=== PATIENT | male | born 1930 | race Caucasian/White ===

== ENCOUNTER 2017-10-24 14:09 | Outpatient (CLI) | payer MEDICARE, BC ==
--- NOTE | 2017-10-24 15:21 | XRAY Report ---
Procedure Date: 10/24/2017 Accession Number: [id number] / [id number] Procedure: XR - Chest 2 View X-Ray CPT Code: 79432 FULL RESULT: EXAM: Chest 2 View X-Ray DATE: 10/24/2017 2:48 PM CLINICAL HISTORY: INTERCOSTAL PAIN COMPARISON: 10/07/2014 and 01/30/2013. TECHNIQUE: 2 views. FINDINGS: Lungs/Pleura: No focal opacities evident. No pneumothorax or pleural effusion. Normal volumes. Mediastinum: Stable calcified left mediastinal nodes. Cardiac silhouette is within normal limits for size. Other: None. IMPRESSION: No acute cardiopulmonary abnormality. Prior granulomatous disease. RADIA
== END 2017-10-24 14:10 | disposition home or self-care (01) ==
LOC: DI 14:09
PROVIDERS: ATTEND Family Medicine
DX: R07.82 Intercostal pain (principal)
CPT/HCPCS: 71046

== ENCOUNTER 2018-07-21 11:26 | Emergency (ER) | payer MEDICARE, BC ==
[2018-07-21 12:05] LABS: BASOPHILS # (AUTO) 0.1 10^3/uL (0.0-0.1); EOSINOPHILS # (AUTO) 0.1 10^3/uL (0.0-0.7); EOSINOPHILS % (AUTO) 0.7 %; HGB - HEMOGLOBIN 14.3 g/dL (14.0-18.0); LYMPHOCYTES # (AUTO) 0.4 10^3/uL (1.5-3.5); MEAN CORPUSCULAR HEMOGLOBIN 31.8 pg (27.0-31.0); MEAN CORPUSCULAR HGB CONC 33.2 g/dL (32.0-36.0); MEAN CORPUSCULAR VOLUME 95.8 fL (80.0-94.0); MEAN PLATELET VOLUME 10.4 fL (7.4-11.4); MONOCYTES # (AUTO) 0.7 10^3/uL (0.0-1.0); MONOCYTES % (AUTO) 7.1 %; NEUTROPHILS # (AUTO) 8.3 10^3/uL (1.5-6.6); NEUTROPHILS % (AUTO) 87.2 %; PLT - PLATELET COUNT 183 10^3/uL (130-450); RED BLOOD COUNT 4.48 10^6/uL (4.70-6.10); WHITE BLOOD COUNT 9.6 x10^3/uL (4.8-10.8)
--- NOTE | 2018-07-21 12:05 | ED Physician Documentation ---
PD HPI CHEST PAIN - Stated complaint Stated Complaint: CHEST PX,WEAK,SORE THROAT - Chief complaint Chief Complaint: Cardiac - History obtained from History obtained from: Patient - History of Present Illness Timing - onset: How many days ago (2-3) Timing - duration: Days (2-3) Timing - details: Abrupt onset (He started feeling weak, achy, coughing, and malaise starting 2-3 days ago. No appetite with poor intake. Feeling worse today. [place] chilled.), Still present Quality: Aching, Pain (with coughing and breathing.) Location: Substernal Radiation: No: Jaw, Back Improved by: Rest Worsened by: Other (coughing) Associated symptoms: Shortness of air, Nausea, General Weakness, Cough. No: Vomiting, Feeling faint / dizzy, Palpitations Similar symptoms before: Diagnosis Recently seen: Clinic Review of Systems Constitutional: reports: Fever, Chills, Myalgias, Fatigue Nose: reports: Congestion. denies: Rhinorrhea / runny nose Throat: denies: Sore throat Cardiac: reports: Chest pain / pressure. denies: Palpitations, Pedal edema Respiratory: reports: Cough. denies: Wheezing GI: reports: Nausea. denies: Abdominal Pain, Vomiting, Diarrhea Neurologic: reports: Generalized weakness. denies: Focal weakness, Numbness, Altered mental status, Headache PD PAST MEDICAL HISTORY - Past Medical History Cardiovascular: Atrial fibrillation Respiratory: None Endocrine/Autoimmune: Type 2 diabetes GI: Diverticulitis : Frequency, Kidney stones HEENT: None Psych: None Musculoskeletal: None Derm: Eczema - Past Surgical History Past Surgical History: Yes Cardiovascular: Coronary stent Derm: Skin cancer surgery - Present Medications Home Medications: Ambulatory Orders Medication Instructions Recorded Confirmed Atorvastatin Calcium [Lipitor] 20 mg PO DAILY 08/03/12 10/07/14 Cholecalciferol (Vitamin D3) 4,000 unit PO DAILY 08/03/12 10/07/14 [Vitamin D] Lisinopril 10 mg PO DAILY 08/03/12 10/07/14 Metformin HCl [Fortamet] 500 mg PO DAILY 08/03/12 10/07/14 [place]-3/Dha/Epa/Fish Oil [Fish Oil] 1,000 mg PO DAILY 08/03/12 10/07/14 Tamsulosin [Flomax] 0.4 mg PO DAILY 08/03/12 10/07/14 Warfarin [Coumadin] 5 mg PO DAILY 08/03/12 10/07/14 Hydrocodone/Acetaminophen [[place] 1 each PO Q6H PRN #20 tablet 10/07/14 5-325 Tablet] Albuterol Sulf [Ventolin Hfa 2 puffs INH Q4HR PRN #1 inhaler 07/21/18 Inhaler] Benzonatate [Tessalon Perle] 100 mg PO TID PRN #30 capsule 07/21/18 Dexamethasone [Decadron] 4 mg PO DAILY #5 tablet 07/21/18 Ondansetron Odt [Zofran] 4 mg TL Q6H PRN #10 tablet 07/21/18 - Allergies Allergies/Adverse Reactions: Allergies Allergy/AdvReac Type Severity Reaction Status Date / Time No Known Drug Allergies Allergy Verified 07/21/18 11:38 - Social History Does the pt smoke?: No Smoking Status: Never smoker Does the pt drink ETOH?: No Does the pt have substance abuse?: No - Immunizations Immunizations are current?: Yes PD ED PE NORMAL - Vitals Vital signs reviewed: Yes - General General: Alert and oriented X 3, No acute distress, Well developed/nourished - HEENT HEENT: Ears normal, Pharynx benign. No: Moist mucous membranes - Neck Neck: Supple, no meningeal sign, No adenopathy - Cardiac Cardiac: No murmur. No: RRR (irregular but rate controlled) - Respiratory Respiratory: Clear bilaterally - Abdomen Abdomen: Soft, Non tender - Derm Derm: Normal color, Warm and dry - Extremities Extremities: No deformity, No tenderness to palpate, Normal ROM s pain, No edema, No calf tenderness / cord - Neuro Neuro: Alert and oriented X 3, No motor deficit, Normal speech Results - Vitals Vitals: Vital Signs - 24 hr 07/21/18 07/21/18 07/21/18 11:32 12:54 14:02 Temperature 36.8 C Heart Rate 70 74 72 Respiratory 19 21 18 Rate Blood Pressure 118/60 124/68 O2 Saturation 100 98 Oxygen O2 Source Room air - EKG (time done) 11:36 Rate: Rate (enter#) (72) Rhythm: Atrial fibrillation [place]: Normal QRS: Normal Ischemia: Normal ST segments. No: ST elevation c/w ischemia, ST depression - Labs Labs: Laboratory Tests 07/21/18 07/21/18 07/21/18 11:30 11:39 11:45 WBC 9.6 RBC 4.48 L Hgb 14.3 Hct 42.9 MCV 95.8 H MCH 31.8 H MCHC 33.2 RDW 15.0 Plt Count 183 MPV 10.4 Neut # (Auto) 8.3 H Lymph # (Auto) 0.4 L [place] # (Auto) 0.7 Eos # (Auto) 0.1 Baso # (Auto) 0.1 Absolute Nucleated RBC 0.00 Nucleated RBC % 0.0 Manual Slide Review Indicated WBC Morphology NORMAL APPEARANCE Platelet Estimate NORMAL (130-450,000) Platelet Morphology RARE GIANT PLATELETS RBC Morph Micro Appear OVALOCYTES PT INR Sodium Potassium Chloride Carbon Dioxide Anion Gap BUN Creatinine Estimated GFR (MDRD) Glucose Calcium Magnesium 2.0 Total Bilirubin AST ALT Alkaline Phosphatase Troponin I < 0.04 Total Protein Albumin Globulin Albumin/Globulin Ratio Lipase Influenza A (Rapid) Influenza B (Rapid) 07/21/18 07/21/18 07/21/18 11:45 11:45 12:40 WBC RBC Hgb Hct MCV MCH MCHC RDW Plt Count MPV Neut # (Auto) Lymph # (Auto) [place] # (Auto) Eos # (Auto) Baso # (Auto) Absolute Nucleated RBC Nucleated RBC % Manual Slide Review WBC Morphology Platelet Estimate Platelet Morphology RBC Morph Micro Appear PT 46.8 H INR 4.2 H Sodium 143 Potassium 3.7 Chloride 103 Carbon Dioxide 28 Anion Gap 12.0 BUN 14 Creatinine 0.8 Estimated GFR (MDRD) 92 Glucose 119 H Calcium 9.5 Magnesium Total Bilirubin 1.8 H AST 24 ALT 16 Alkaline Phosphatase 76 Troponin I Total Protein 8.4 H Albumin 3.8 Globulin 4.6 H Albumin/Globulin Ratio 0.8 L Lipase 28 Influenza A (Rapid) Negative Influenza B (Rapid) Negative - Rads (name of study) chest Radiology: Prelim report reviewed, EMP read contemporaneously (no infiltrates), See rad report PD MEDICAL DECISION MAKING - ED course Complexity details: re-evaluated patient (feeling better with IV fluids and meds), considered differential (sounds flu-like. and will check for pneumonia. Seems dehydrated as part of symptoms.), d/w patient Departure - Departure Disposition: 01 Home, Self Care Clinical Impression: Flu-like symptoms, Dehydration Condition: Stable Record reviewed to determine appropriate education?: Yes Instructions: ED Upper Resp Infec No Abx Tx Follow-Up: Elio Barone MD [Primary Care Provider] - Prescriptions: Albuterol Sulf [Ventolin Hfa Inhaler] 2 puffs INH Q4HR PRN #1 inhaler PRN Reason: Shortness Of Air/Wheezing Benzonatate [Tessalon Perle] 100 mg PO TID PRN #30 capsule PRN Reason: Cough Dexamethasone [Decadron] 4 mg PO DAILY #5 tablet Ondansetron Odt [Zofran] 4 mg TL Q6H PRN #10 tablet PRN Reason: Nausea / Vomiting Comments: Small frequent fluids to stay well-hydrated. Food as tolerated. Ondansetron if needed for nausea feeling. This does sound like a flulike illness and presume you will be ill for several days to week. Decadron steroid daily for 5 more days can help reduce some of the symptoms. Tessalon if needed for the cough. Use the albuterol inhaler 2 puffs 4 times a day to help reduce coughing and improve breathing. Recheck if worsening symptoms of the next few days. Discharge Date/Time: 07/21/18 14:06
[2018-07-21 12:10] LABS: ALBUMIN 3.8 g/dL (3.2-5.5); ALBUMIN/GLOBULIN RATIO 0.8 (1.0-2.2); BILIRUBIN,TOTAL 1.8 mg/dL (0.2-1.0); CALCIUM 9.5 mg/dL (8.5-10.3); CREATININE 0.8 mg/dL (0.6-1.2); TOTAL PROTEIN 8.4 g/dL (6.7-8.2)
--- NOTE | 2018-07-21 12:18 | XRAY Report ---
Reason: chest pain, weakness Procedure Date: 07/21/2018 Accession Number: [id number] / [id number] Procedure: XR - Chest 1 View X-Ray CPT Code: 22724 FULL RESULT: EXAM: CHEST RADIOGRAPHY EXAM DATE: 07/21/2018 11:56 AM. CLINICAL HISTORY: Chest pain and weakness. COMPARISON: CHEST 2 VIEW 10/24/2017 2:36 PM. TECHNIQUE: 1 view. FINDINGS: Lungs/Pleura: No focal opacities evident. No pleural effusion. No pneumothorax. Mediastinum: Within exam limitations, the cardiomediastinal contour is normal. Other: None. IMPRESSION: Normal single view chest. RADIA
[2018-07-21 12:20] LABS: PLATELET ESTIMATE, MANUAL NORMAL (130-450,000) (NORMAL); PLATELET MORPHOLOGY RARE GIANT PLATELETS (NORMAL)
[2018-07-21 12:21] LABS: RBC MORPHOLOGY (MULTIPLE) OVALOCYTES (NORMAL)
[2018-07-21] MEDS ORDERED: SODIUM CHLORIDE 0.9% 1,000 ML IV ONE (12:25)
[2018-07-21] MEDS ORDERED: DEXAMETHASONE 10 MG/ML VIAL IVP STA (12:25)
[2018-07-21] MEDS ORDERED: ONDANSETRON 4 MG/2 ML VIAL IVP STA (12:25)
[2018-07-21] MEDS ORDERED: ALBUTEROL NEB 2.5 MG/3 ML INH STA (12:25)
[2018-07-21 14:06] LABS: INR 4.2 (0.8-1.2); PT - PROTHROMBIN TIME 46.8 secs (9.9-12.6)
[2018-07-21 14:48] VITALS: BP 124/68
== END 2018-07-21 14:06 | disposition home or self-care (01) ==
LOC: ED 11:26
DX: E86.0 Dehydration (principal); R50.9 Fever, unspecified; R05 Cough; R06.02 Shortness of breath; R09.81 Nasal congestion; R11.0 Nausea; R53.1 Weakness; I48.91 Unspecified atrial fibrillation; Z79.01 Long term (current) use of anticoagulants; E11.9 Type 2 diabetes mellitus without complications; Z79.84 Long term (current) use of oral hypoglycemic drugs
CPT/HCPCS: 36415; 71045; 80053; 83690; 83735; 84484; 85025; 85610; 87275; 87276; 93005; 94640; 96361; 96374; 96375; 99283; 99284

== ENCOUNTER 2020-01-16 00:36 | Outpatient (CLI) | payer MEDICARE | END 2020-01-16 00:37 | disposition critical access hospital (66) | LOC: EMS 00:36 | PROVIDERS: ATTEND Surgery | DX: M25.569 Pain in unspecified knee (principal) | CPT/HCPCS: A0425; A0429 ==

== ENCOUNTER 2020-01-16 00:53 | Emergency (ER) | payer BC, MEDICARE ==
--- NOTE | 2020-01-16 01:18 | ED Physician Documentation ---
PD HPI LOWER EXT INJURY - Stated complaint Stated Complaint: KNEE PX - Chief complaint Chief Complaint: Ext Problem - History obtained from History obtained from: Patient - History of Present Illness PD HPI LOW EXT INJURY LOCATION: Right, Knee, Lower leg Type of injury: Other (he was on a short walk in park at [facility] [place] and had onset feeling of burning and pain medial upper calf/side of knee without noted injury per se. Has continued with pain there.). No: Fall, Twist Where injury occurred: Park Timing - onset: Today (5-6 hours ago) Timing - details: Abrupt onset, Still present, Waxing and waning Worsened by: Palpating. No: Moving Associated symptoms: No: Weakness, Numbness, Swelling Contributing factors: Anticoagulated Similar symptoms before: Has not had sx before Recently seen: Not recently seen Review of Systems Constitutional: denies: Fever, Chills Nose: denies: Rhinorrhea / runny nose, Congestion Throat: denies: Sore throat Respiratory: denies: Cough Skin: denies: Rash, Abrasion (s), Laceration (s) Musculoskeletal: denies: Extremity swelling Neurologic: denies: Focal weakness, Numbness PD PAST MEDICAL HISTORY - Past Medical History Past Medical History: Yes Cardiovascular: Atrial fibrillation Respiratory: None Endocrine/Autoimmune: Type 2 diabetes GI: Diverticulitis : Frequency, Kidney stones HEENT: None Psych: None Musculoskeletal: None Derm: Eczema - Past Surgical History Past Surgical History: Yes Cardiovascular: Coronary stent Derm: Skin cancer surgery - Present Medications Home Medications: Ambulatory Orders Medication Instructions Recorded Confirmed Atorvastatin Calcium [Lipitor] 20 mg PO DAILY 08/03/12 10/07/14 Cholecalciferol (Vitamin D3) 4,000 unit PO DAILY 08/03/12 10/07/14 [Vitamin D] Lisinopril 10 mg PO DAILY 08/03/12 10/07/14 Metformin HCl [Fortamet] 500 mg PO DAILY 08/03/12 10/07/14 [place]-3/Dha/Epa/Fish Oil [Fish Oil] 1,000 mg PO DAILY 08/03/12 10/07/14 Tamsulosin [Flomax] 0.4 mg PO DAILY 08/03/12 10/07/14 Warfarin [Coumadin] 5 mg PO DAILY 08/03/12 10/07/14 Hydrocodone/Acetaminophen [[place] 1 each PO Q6H PRN #20 tablet 10/07/14 5-325 Tablet] Albuterol Sulf [Ventolin Hfa 2 puffs INH Q4HR PRN #1 inhaler 07/21/18 Inhaler] Benzonatate [Tessalon Perle] 100 mg PO TID PRN #30 capsule 07/21/18 Ondansetron Odt [Zofran] 4 mg TL Q6H PRN #10 tablet 07/21/18 dexAMETHasone [Decadron] 4 mg PO DAILY #5 tablet 07/21/18 - Allergies Allergies/Adverse Reactions: Allergies Allergy/AdvReac Type Severity Reaction Status Date / Time No Known Drug Allergies Allergy Verified 01/16/20 01:01 - Social History Does the pt smoke?: No Smoking Status: Never smoker Does the pt drink ETOH?: No Does the pt have substance abuse?: No - Immunizations Immunizations are current?: Yes PD ED PE NORMAL - Vitals Vital signs reviewed: Yes - General General: Alert and oriented X 3, No acute distress, Well developed/nourished - Derm Derm: Normal color, Warm and dry, No rash - Extremities Extremities: Other (right medial upper calf with local tenderness. There is faint purpling color under the skin. No hematoma per se. Vein in area appears somewhat prominent but not hard. No skin sores nor rash. ) - Neuro Neuro: Alert and oriented X 3, No motor deficit, No sensory deficit, Normal speech Results - Vitals Vitals: Vital Signs - 24 hr 01/16/20 01/16/20 01/16/20 00:59 01:02 03:03 Temperature 37.7 C H 37.7 C H 37.5 C Heart Rate 82 82 80 Respiratory 16 16 18 Rate Blood Pressure 139/66 H 139/66 H 123/64 O2 Saturation 99 99 100 01/16/20 03:16 Temperature 37.5 C Heart Rate 80 Respiratory 18 Rate Blood Pressure 123/64 O2 Saturation 100 Oxygen O2 Source Room air - Labs Labs: Laboratory Tests 01/16/20 01/16/20 01:45 01:45 PT 19.7 H INR 1.8 H Sodium 140 Potassium 3.6 Chloride 108 Carbon Dioxide 25 Anion Gap 7.0 BUN 23 H Creatinine 0.7 Estimated GFR (MDRD) 107 Glucose 119 H Calcium 8.8 Magnesium 1.8 Total Bilirubin 0.9 AST 19 ALT 15 Alkaline Phosphatase 48 Total Protein 7.1 Albumin 3.4 Globulin 3.7 Albumin/Globulin Ratio 0.9 L Lipase 32 - Rads (name of study) duplex right leg Radiology: Prelim report reviewed (no DVT. ), See rad report PD MEDICAL DECISION MAKING - ED course Complexity details: reviewed results, considered differential, d/w patient Departure - Departure Disposition: 01 Home, Self Care Clinical Impression: Lower leg pain Qualifiers: Laterality: right Qualified Code(s): M79.661 - Pain in right lower leg Condition: Stable Record reviewed to determine appropriate education?: Yes Instructions: ED Strain Muscle Ext Comments: Your ultrasound is normal without any signs of blood clots. Your electrolytes are looking normal as well. Your Coumadin level shows an INR of 1.8 which is okay though slightly low. I presume your symptoms relate to a strain or irritation of the muscle in the leg, or some irritation of the surface vein. You may develop some bruising in the area. Warm moist towels to the area periodically. Tylenol 4 times a day for the next few days as needed for pains. Recheck if not improved over the next several days or if other symptoms develop. Discharge Date/Time: 01/16/20 03:43
[2020-01-16 01:58] LABS: INR 1.8 (0.8-1.2); PT - PROTHROMBIN TIME 19.7 secs (9.9-12.6)
[2020-01-16 02:05] LABS: ALBUMIN 3.4 g/dL (3.2-5.5); ALBUMIN/GLOBULIN RATIO 0.9 (1.0-2.2); BILIRUBIN,TOTAL 0.9 mg/dL (0.2-1.0); CALCIUM 8.8 mg/dL (8.5-10.3); CREATININE 0.7 mg/dL (0.6-1.2); MAGNESIUM 1.8 mg/dL (1.7-2.8); TOTAL PROTEIN 7.1 g/dL (6.7-8.2)
[2020-01-16] MEDS ORDERED: ACETAMINOPHEN 325 MG TABLET PO STA (02:59)
[2020-01-16] MEDS ORDERED: HYDROcod/ACETAM 5/325 MG TABLET PO STA (02:59)
[2020-01-16 03:04] VITALS: BP 123/64
--- NOTE | 2020-01-16 07:42 | Ultrasound Report ---
PROCEDURE: Duplex Ext Veins Right INDICATIONS: right upper calf pain onset today TECHNIQUE: Real-time imaging, as well as color and pulse Doppler interrogation, were performed of the lower extr emity deep veins from the inguinal ligament to the popliteal fossa. COMPARISON: None. FINDINGS: The deep veins are normally compressible, and free of intraluminal thrombus. Color and pu lse Doppler demonstrate normal phasic intraluminal flow. There is normal augmentation response to di stal compression maneuver. IMPRESSION: No evidence of deep vein thrombosis involving the right lower extremity. Reviewed by: Manuela Walls MD, PhD on 01/16/2020 7:41 AM PDT Approved by: Manuela Walls MD, PhD on 01/16/2020 7:41 AM PDT Station ID: [id number]
== END 2020-01-16 03:43 | disposition home or self-care (01) ==
LOC: EDUNIT# → ED 00:53
DX: M79.661 Pain in right lower leg (principal); M25.561 Pain in right knee; R23.8 Other skin changes; I48.91 Unspecified atrial fibrillation; Z79.01 Long term (current) use of anticoagulants; E11.9 Type 2 diabetes mellitus without complications; Z79.84 Long term (current) use of oral hypoglycemic drugs
CPT/HCPCS: 36415; 80053; 83690; 83735; 85610; 93971; 99283; 99284; A9270